=== PATIENT | female | born 2000 | race Two or more races ===

== ENCOUNTER 2023-03-18 08:07 | Emergency (ER) | payer OTHER ==
[~2023-03-18] VITALS: Ht 160 cm; Wt 120.0 kg
[2023-03-18 08:47] LABS: Eosinophils # (auto) 0.1 10 ^3/uL (0-0.8); Eosinophils % (auto) 1.3 % (0.0-7.0); Hemoglobin 11.2 g/dL (12.2-16.2); Lymphocytes # (auto) 1.3 10 ^3/uL (0.4-5.4); Neutrophils # (auto) 6.7 10 ^3/uL (1.6-8.6); White Blood Cell 8.6 10^3/uL (4.4-10.8)
[2023-03-18 08:49] LABS: Basophils # (auto) 0.1 10 ^3/uL (0-0.2); Basophils % (auto) 0.7 % (0.0-2.0); Hematocrit 34.8 % (36.0-46.0); Lymphocytes % (auto) 14.9 % (10.0-50.0); Mean Corpuscular Hemoglobin 24.9 pg (28.0-32.0); Mean Corpuscular Hgb Conc. 32.3 g/dL (32.0-36.0); Mean Corpuscular Volume 77.2 fL (80.0-100.0); Monocytes # (auto) 0.4 10 ^3/uL (0-1.3); Monocytes % (auto) 5.1 % (0.0-12.0); Red Blood Cells 4.52 10^6/uL (4.0-5.20); Red Cell Distribution Width 17.7 % (11.8-14.3)
[2023-03-18 11:16] LABS: Urine Bacteria FEW /hpf (None Seen); Urine Blood 2+ /uL (Negative); Urine Clarity HAZY (Clear); Urine Protein, UAD Negative (Negative); Urine Urobilinogen Normal (Negative); Urine WBC 12 /hpf (0 - 5); Urine pH 6.5 (5.0-8.0)
[2023-03-18 11:20] LABS: Urine Color STRAW (Yellow)
[2023-03-18] MEDS ORDERED: NITR-87 PO (11:41)
[2023-03-18 12:17] VITALS: BP 126/47; PULSE 85; RESP 16; TEMP 98.6; O2SAT 100
== END 2023-03-18 12:19 | disposition home or self-care (01) ==
LOC: ER 08:07
DX: O20.0 Threatened abortion (principal); R10.2 Pelvic and perineal pain; Z3A.01 Less than 8 weeks gestation of pregnancy
CPT/HCPCS: 36415; 76801; 76817; 81001; 84702; 85025